=== PATIENT | male | born 1960 | race Caucasian/White ===

== ENCOUNTER 2016-07-17 09:19 | Day surgery (SDC) | payer MEDICAID ==
[2016-07-14 13:22] LABS: HEMATOCRIT 50.1 % (42.0-54.0); HEMOGLOBIN 17.7 g/dL (13.5-17.5); MCH 33.1 pg (26.0-34.0); MCHC 35.3 g/dL (31.0-37.0); MCV 93.6 fL (80.0-100.0); MEAN PLATELET VOLUME 9.5 fL (7.4-10.4); RBC 5.35 10x6/uL (4.20-6.10); RDW 13.2 % (11.5-14.5); WBC 5.8 10x3/uL (4.8-10.8)
[~2016-07-17] VITALS: Ht 177.8 cm; Wt 88.5 kg
[~2016-07-17 09:19] MED LIST: CARDIZEM120 MG PO; LISINOPRIL10 MG PO; MECLIZINE HCL12.5 MG PO; NORMODYNE / TR100 MG PO; PHENERGAN25 M1 PO
[2016-07-17 11:45] VITALS: BP 124/65; Ht 177.8 cm; Wt 88.5 kg
[2016-07-17 12:20] LABS: CALC OSMOLALITY 284 mosm/kg (275-300); CALCIUM 9.6 mg/dL (8.5-10.1); CARBON DIOXIDE 25.4 mmol/L (21.0-32.0); CHLORIDE - SERUM 104 mmol/L (98-107); GLUCOSE 100 mg/dL (74-106); SODIUM 141 mmol/L (136-145); UREA NITROGEN 24 mg/dL (7-18); eGFR NON AFRICAN AMERICAN 82 mL/min (90-120)
--- NOTE | 2016-07-17 15:00 | NUR ---
PATIENT AMBULATES TO BATHROOM AND VOIDS LARGE AMOUNT IN TOILET, DRESSING IN PERSONAL CLOTHES. ADVISED PATIENT TO BE CAUTIOUS ABOUT AMBULATING WITH PERIPHERAL NERVE BLOCK IN EFFECT TO LEFT LOWER EXTREMITY, THAT SENSATION IS DECREASED SO FALLING IS MORE LIKELY, STATES UNDERSTANDING
--- NOTE | 2016-07-17 15:20 | NUR ---
DISCHARGE INSTRUCTIONS REVIEWED WITH PATIENT, DISCHARGED HOME VIA WHEELCHAIR TO PRIVATE VEHICLE WITH FRIEND
== END 2016-07-17 15:20 | disposition home or self-care (01) ==
LOC: D.OPS 09:19 → D.PAN 11:30 → D.OPS 15:20
PROVIDERS: Anesthesiology
DX: M20.12 Hallux valgus (acquired), left foot (principal); F17.200 Nicotine dependence, unspecified, uncomplicated; I10 Essential (primary) hypertension